=== PATIENT | female | born 2005 | race Two or more races ===

== ENCOUNTER 2025-08-26 07:00 | Day surgery (SDC) | payer OTHER ==
[2025-08-22 10:50] LABS: BASO % 1.0 % (0.1-1.2); EOS # 0.11 (0.04-0.54); EOS % 2.8 % (0.7-7.0); LYMPH # 1.87 (1.18-3.74); LYMPH % 48.2 % (19.3-53.1); MEAN PLATELET VOLUME 10.10 fl (9.4-12.4); MONO # 0.21 (0.24-0.82); MONO % 5.4 % (4.7-12.5); NEUT # 1.64 (1.56-6.13); NEUT % 42.3 % (34.0-71.1); RED CELL DISTRIBUTION WIDTH 16.2 % (11.6-14.4)
[2025-08-22 10:53] LABS: URINE APPEARANCE Clear; URINE BILIRRUBIN Negative (NEGATIVE); URINE BLOOD Trace; URINE COLOR Yellow; URINE GLUCOSE Negative (NEGATIVE); URINE KETONE Negative (NEGATIVE); URINE LEUKOCYTE Negative; URINE NITRATE Negative; URINE PROTEIN Negative (NEGATIVE); URINE UROBILINOGEN 0.2 E.U./dl
[2025-08-22 10:58] LABS: URINE BACTERIA 728.2 uL (0.0-1933); URINE EPITHELIAL CELLS 46.3 uL (0.0-38.8); URINE RBC 12.3 uL (0.0-20.8); URINE WBC 18.3 uL (0.0-23.2)
[2025-08-22 11:13] LABS: INR 1.07
[2025-08-22 11:15] LABS: ALT/SGPT 27.0 U/L (12-78); AST/SGOT 17.0 U/L (15-37); BILIRUBIN TOTAL 0.36 mg/dL (0.3-1.2); BUN CREA RATIO 26.0 (7.0-25.0); CREATININE SERUM 0.57 mg/dL (0.55-1.02); GFR 133.89; GLOBULINA 3.8 G/DL (2.4-3.5); GLUCOSE FASTING 87.0 mg/dL (65-100); OSMOLALITY SERUM 280.0 MOSM/KG (275-295)
[2025-08-22 11:23] LABS: URINE CAST 0.00 uL (0.0-1.40)
[~2025-08-26 07:00] MED LIST: ALYACEN1 EAC1 PO
[2025-08-26] MEDS ORDERED: CEFAZOLIN SODIUM 1,000 MG VIAL IV ONE (09:00)
== END 2025-08-26 11:10 | disposition home or self-care (01) ==
LOC: CIR.AMB 07:00
PROVIDERS: ATTEND Orthopaedic Surgery Hand Surgery
DX: S62.616A Displaced fracture of proximal phalanx of right little finger, initial encounter for closed fracture (principal)